=== PATIENT | male | born 1980 | race Caucasian/White ===

== ENCOUNTER 2025-05-03 17:56 | Emergency (ER) | payer OTHER, SELFPAY ==
[~2025-05-03] VITALS: Ht 170.2 cm; Wt 102.0 kg
[2025-05-03 18:53] LABS: BASO # 0.1 10^3/uL (0.0-0.2); BASO % 0.7 % (0.0-1.0); EOS # 0.0 10^3/uL (0.0-0.5); EOS % 0.1 % (0.0-3.0); LYMPH # 2.1 10^3/uL (1.5-5.0); LYMPH % 11.5 % (24.0-44.0); MONO # 1.9 10^3/uL (0.0-0.8); MONO % 10.5 % (2.0-8.0); NEUTROPHILS # 14.2 10^3/uL (1.5-8.5); NEUTROPHILS % 76.6 % (36.0-66.0); PLATELET COUNT, AUTOMATED 580 10^3/uL (150-450)
[2025-05-03 19:20] LABS: CALCIUM LEVEL 9.2 MG/DL (8.5-10.1); CARBON DIOXIDE LEVEL 23 MMOL/L (20-31); CHLORIDE LEVEL 96 MMOL/L (98-107); CREATININE FOR GFR 0.76 MG/DL (0.70-1.30); GLOMERULAR FILTRATION RATE > 90.0 (>60); POTASSIUM SERUM 4.6 MMOL/L (3.5-5.1); SODIUM LEVEL 132 MMOL/L (136-145)
[2025-05-03 19:40] LABS: KETONE, URINE AUTO RFX NEGATIVE (NEGATIVE); LEUKOCYTE ESTERASE UR AUTO RFX NEGATIVE (NEGATIVE); MUCUS, URINE RFX LARGE (NEGATIVE); NITRITE, URINE AUTO RFX NEGATIVE (NEGATIVE); RBC, URINE AUTO RFX 1 /HPF (0-3); SQUAM EPITHELIAL CELL UR AURFX 0 /HPF (0-6); WBC, URINE AUTO RFX 4 /HPF (0-3)
[2025-05-03 23:32] LABS: FREE T4 1.27 NG/DL (0.89-1.76)
[2025-05-04 00:04] VITALS: BP 131/71; TEMP 99; O2SAT 98
== END 2025-05-04 00:05 | disposition home or self-care (01) ==
LOC: M ED 17:56
DX: D72.829 Elevated white blood cell count, unspecified (principal); D75.839 Thrombocytosis, unspecified

== ENCOUNTER → 2025-06-02 | Outpatient (CLI) | payer SELFPAY ==
[2025-06-02 10:40] VITALS: TEMP 98.2
[2025-06-02] MEDS: LIDOCAINE 1% MDV 20 ML VIAL SC STA (11:15)
[2025-06-02 13:15] VITALS: BP 119/78; O2SAT 95
== END ==
LOC: M IRPRO 10:14
PROVIDERS: ATTEND Internal Medicine Medical Oncology
DX: C22.9 Malignant neoplasm of liver, not specified as primary or secondary (principal); K76.89 Other specified diseases of liver; R91.1 Solitary pulmonary nodule

== ENCOUNTER 2025-07-04 15:57 | Inpatient (IN) | payer SELFPAY ==
[2025-07-04 16:44] LABS: PLATELET COUNT, AUTOMATED 166 10^3/uL (150-450)
[2025-07-04] MEDS: NS (Normal Saline) 0.9% 1,000 ML IV SCH (17:00)
[2025-07-04] MEDS: PANTOPRAZOLE 40MG VIAL IV ONE (17:10)
[2025-07-04 17:18] LABS: INR 1.81
[2025-07-04] MEDS: NS (Normal Saline) 0.9% 1,000 ML IV ONE (17:21)
[2025-07-04 17:26] LABS: ATYPICAL LYMPH 1 % (0-5); LYMPHOCYTES 5 % (16-44); METAMYELOCYTES 1 % (0-0); MONOCYTES 2 % (0-5); NEUTROPHILS 86 % (28-66); PLATELET ESTIMATE NORMAL (NORMAL)
[2025-07-04 17:38] LABS: ALT/SGPT 97 U/L (7.0-40); AST/SGOT 520 U/L (<34); CALCIUM LEVEL 8.1 MG/DL (8.5-10.1); CARBON DIOXIDE LEVEL 12 MMOL/L (20-31); CHLORIDE LEVEL 89 MMOL/L (98-107); CREATININE FOR GFR 0.56 MG/DL (0.70-1.30); GLOMERULAR FILTRATION RATE > 90.0 (>60); POTASSIUM SERUM 5.8 MMOL/L (3.5-5.1); SODIUM LEVEL 124 MMOL/L (136-145)
[2025-07-04] MEDS ORDERED: ISOVUE-370 76% 100 ML VIAL As Ordered ONE (17:50)
[2025-07-04] MEDS ORDERED: ONDANSETRON 4MG TAB PO PRN (20:55)
[2025-07-04] MEDS ORDERED: ACET-897 PO (21:29)
[2025-07-04] MEDS ORDERED: HOME MED LIST COMPLETE! XX SCH (21:30)
[2025-07-04] MEDS: NS (Normal Saline) 0.9% 1,000 ML in IV 1 EA IV ONE (23:24)
[2025-07-05] MEDS ORDERED: NS (Normal Saline) 0.9% 1,000 ML IV ONE (06:55)
[2025-07-05 07:06] VITALS: BP 94/61
[2025-07-05] MEDS: MIDODRINE 5 MG TAB PO ONE (07:06)
[2025-07-05 07:13] LABS: KETONE, URINE AUTO RFX NEGATIVE (NEGATIVE); LEUKOCYTE ESTERASE UR AUTO RFX NEGATIVE (NEGATIVE); MUCUS, URINE RFX SMALL (NEGATIVE); NITRITE, URINE AUTO RFX NEGATIVE (NEGATIVE); RBC, URINE AUTO RFX 2 /HPF (0-3); SQUAM EPITHELIAL CELL UR AURFX 0 /HPF (0-6); WBC, URINE AUTO RFX 5 /HPF (0-3)
[2025-07-05] MEDS: PATIROMER SORBITEX CALCIUM 8.4GM POWDER PACKET PO ONE (07:51)
[2025-07-05] MEDS: SODIUM BICARBONATE 325 MG TAB PO ONE (07:51)
[2025-07-05] MEDS: SODIUM CHLORIDE 1 GM TAB PO ONE (07:51)
[2025-07-05 07:55] VITALS: BP 90/55; TEMP 97.1; O2SAT 96
[2025-07-05] MEDS: CALCIUM GLUCONATE 1,000 MG in DEXTROSE 5% (D5W) MINI-BAG PLU 100 ML IV ONE (08:10)
[2025-07-05] MEDS: PANTOPRAZOLE 40MG VIAL IV SCH (08:10)
[2025-07-05] MEDS: NOREPINEPHRINE 4MG IN D5 250ML 4 MG in IV 1 EA IV SCH (09:27)
[2025-07-05] MEDS: HYDROCORTISONE 100 MG/2 ML VIAL IV ONE ×2 (09:49→12:55)
[2025-07-05] MEDS: PIPERACILLIN/TAZOBACTAM SOD 4.5 GM in DEXTROSE 5% (D5W) ADV/MINI-BAG 50 ML IV SCH (09:49)
[2025-07-05 10:16] VITALS: BP 107/62; TEMP 97.8; O2SAT 96
[2025-07-05 11:43] LABS: PLATELET COUNT, AUTOMATED 164 10^3/uL (150-450)
[2025-07-05 12:30] LABS: CK-MB VALUE MASS 2.2 NG/ML (<3.6)
[2025-07-05 12:35] LABS: CPK CREATINE PHOSPHOKINASE 198 U/L (46-171); MB/CK RELATIVE INDEX 1.11 (< OR =4)
[2025-07-05 13:05] LABS: HEPATITIS C VIRUS ABY INDEX 0.07 INDEX (<0.8)
[2025-07-05 13:17] LABS: ALT/SGPT 91 U/L (7.0-40); AST/SGOT 555 U/L (<34); C REACTIVE PROTEIN QUANTITATIV 14.29 MG/DL (<1.0); CALCIUM LEVEL 7.8 MG/DL (8.5-10.1); CARBON DIOXIDE LEVEL 21 MMOL/L (20-31); CHLORIDE LEVEL 93 MMOL/L (98-107); CREATININE FOR GFR 0.56 MG/DL (0.70-1.30); GLOMERULAR FILTRATION RATE > 90.0 (>60); LYMPHOCYTES 9 % (16-44); MAGNESIUM LEVEL 2.5 MG/DL (1.8-2.4); METAMYELOCYTES 1 % (0-0); MONOCYTES 2 % (0-5); NEUTROPHILS 87 % (28-66); PLATELET ESTIMATE NORMAL (NORMAL); POTASSIUM SERUM 5.0 MMOL/L (3.5-5.1); SODIUM LEVEL 128 MMOL/L (136-145)
[2025-07-05 13:34] LABS: CALCIUM LEVEL 7.8 MG/DL (8.5-10.1); CARBON DIOXIDE LEVEL 22 MMOL/L (20-31); CHLORIDE LEVEL 94 MMOL/L (98-107); CREATININE FOR GFR 0.55 MG/DL (0.70-1.30); GLOMERULAR FILTRATION RATE > 90.0 (>60); POTASSIUM SERUM 5.0 MMOL/L (3.5-5.1); SODIUM LEVEL 129 MMOL/L (136-145)
[2025-07-05 13:41] LABS: OSMOLALITY SERUM 281 MOSM/KG (275-295)
[2025-07-05 14:42] LABS: CHLORIDE,RANDOM URINE 20 MMOL/L; POTASSIUM RANDOM URINE 22.0 MMOL/L; SODIUM,RANDOM URINE < 10 MMOL/L
[2025-07-05] MEDS ORDERED: MIRALAX *UNIT DOSE* 17 GM PACKET PO PRN (16:25)
[2025-07-05] MEDS ORDERED: POLYVINYL ALCOHOL OPHTH SOLN 15ML (LIQUITEARS) OU PRN (16:25)
[2025-07-05] MEDS ORDERED: HYOSCYAMINE SULFATE 0.125 MG SUBL TABLET SL PRN (16:25)
[2025-07-05] MEDS ORDERED: SENNA 8.6 MG TAB PO PRN (16:25)
[2025-07-05] MEDS ORDERED: ATROPINE SULFATE 1% OPHTH SOLN 2 ML BTL SL PRN (16:25)
[2025-07-05] MEDS ORDERED: ONDANSETRON 4MG ORAL DISINTEGRATING TAB PO PRN (16:25)
[2025-07-05] MEDS ORDERED: SALIVA SUBSTITUTE BTL MT PRN (16:25)
[2025-07-05] MEDS ORDERED: SODIUM BICARBONATE 150 MEQ in D5W 850 ML IV SCH (17:00)
[2025-07-05] MEDS ORDERED: SODIUM BICARBONATE 150 MEQ in D5W 1,000 ML IV SCH (18:00)
[2025-07-05] MEDS: LORazepam 1 MG TAB PO SCH (20:57)
[2025-07-06] MEDS: MORPHINE 10 MG/0.5 ML ORAL CONCENTRATE SOLUTION U/D SL PRN (04:58)
[2025-07-06] MEDS: MORPHINE 10 MG/0.5 ML ORAL CONCENTRATE SOLUTION U/D SL SCH (13:00)
[2025-07-06] MEDS: LORazepam 1 MG TAB PO PRN (13:30)
[2025-07-07] MEDS ORDERED: LORazepam 1 MG TAB PO SCH ×2 (09:00→13:00)
[2025-07-07] MEDS: MORPHINE 10 MG/0.5 ML ORAL CONCENTRATE SOLUTION U/D SL PRN (10:02)
[2025-07-07] MEDS ORDERED: MORPHINE 10 MG/0.5 ML ORAL CONCENTRATE SOLUTION U/D SL SCH (13:00)
== END 2025-07-07 17:00 | disposition expired | DRG 720 ==
LOC: M ED 15:57 → M ED INP 20:53 → M ICU 07-05 10:42 → M MS5PR 07-06 09:52
PROVIDERS: ADMIT Student in an Organized Health Care Education/Training Program; ATTEND General Practice
DX: A41.9 Sepsis, unspecified organism (principal); C78.00 Secondary malignant neoplasm of unspecified lung; C78.7 Secondary malignant neoplasm of liver and intrahepatic bile duct; C79.89 Secondary malignant neoplasm of other specified sites; R18.8 Other ascites; R57.1 Hypovolemic shock; C78.89 Secondary malignant neoplasm of other digestive organs; E87.21 Acute metabolic acidosis; E22.2 Syndrome of inappropriate secretion of antidiuretic hormone; R65.21 Severe sepsis with septic shock; E87.5 Hyperkalemia; K92.2 Gastrointestinal hemorrhage, unspecified; R17 Unspecified jaundice; F17.220 Nicotine dependence, chewing tobacco, uncomplicated; R11.2 Nausea with vomiting, unspecified; R29.6 Repeated falls; R53.1 Weakness; R62.7 Adult failure to thrive; R63.0 Anorexia; R63.4 Abnormal weight loss; R74.01 Elevation of levels of liver transaminase levels; K65.9 Peritonitis, unspecified; Z66 Do not resuscitate; Z51.5 Encounter for palliative care

== ENCOUNTER → 2025-07-04 | Outpatient (CLI) | payer SELFPAY ==
[~2025-07-04] VITALS: Ht 175.3 cm; Wt 97.9 kg
[~2025-07-04] MED LIST: ACET-897 PO
[2025-07-04 15:26] VITALS: BP 102/62; O2SAT 95
== END ==
LOC: M PAL 14:34
PROVIDERS: ATTEND Physician Assistant
DX: Z51.5 Encounter for palliative care (principal); C78.00 Secondary malignant neoplasm of unspecified lung; C78.7 Secondary malignant neoplasm of liver and intrahepatic bile duct; Z79.891 Long term (current) use of opiate analgesic
CPT/HCPCS: G0463; G2212

== ENCOUNTER → 2025-07-04 | Outpatient (CLI) | payer SELFPAY | LOC: M ONCR 16:00 | PROVIDERS: ATTEND General Practice | DX: K22.89 Other specified disease of esophagus (principal); R17 Unspecified jaundice; R13.10 Dysphagia, unspecified; K92.1 Melena; R53.83 Other fatigue; D62 Acute posthemorrhagic anemia; C78.7 Secondary malignant neoplasm of liver and intrahepatic bile duct; Z87.891 Personal history of nicotine dependence ==